=== PATIENT | male | born 1955 | race Native Hawaiian/Other Pacific Islander ===

== ENCOUNTER 2020-08-13 09:30 | Outpatient (CLI) | payer OTHER, MEDICARE | END 2020-08-13 21:49 | disposition home or self-care (01) | LOC: MRI 09:30 | PROVIDERS: ATTEND Internal Medicine | DX: M47.12 Other spondylosis with myelopathy, cervical region (principal) ==

== ENCOUNTER 2021-06-23 13:16 | Outpatient (CLI) | payer OTHER, MEDICARE ==
[2021-06-23 13:28] LABS: PLATELET COUNT 285 K/uL (142-355)
== END 2021-06-23 19:05 | disposition home or self-care (01) ==
LOC: LAB 13:16
PROVIDERS: ATTEND Internal Medicine
DX: R41.3 Other amnesia (principal); I10 Essential (primary) hypertension
CPT/HCPCS: 80053; 80061; 84439; 84443; 85027

== ENCOUNTER 2021-06-25 09:19 | Outpatient (CLI) | payer OTHER, MEDICARE | END 2021-06-25 18:52 | disposition home or self-care (01) | LOC: CT 09:19 | PROVIDERS: ATTEND Internal Medicine | DX: R41.3 Other amnesia (principal) ==

== ENCOUNTER 2022-03-10 09:14 | Outpatient (CLI) | payer OTHER, MEDICARE ==
[2022-03-10 09:44] LABS: PLATELET COUNT 296 K/uL (142-355)
[2022-03-10 10:38] LABS: POTASSIUM 3.8 mmol/L (3.6-5.2)
== END 2022-03-10 19:35 | disposition home or self-care (01) ==
LOC: LABW 09:14
PROVIDERS: ATTEND Internal Medicine
DX: R06.09 Other forms of dyspnea (principal); I10 Essential (primary) hypertension; D64.9 Anemia, unspecified
CPT/HCPCS: 36415; 80053; 80061; 81002; 82607; 82728; 82746; 83540; 83550; 83880; 84439; 84443; 85027; 85379

== ENCOUNTER 2022-03-31 15:52 | Outpatient (CLI) | payer OTHER, MEDICARE | END 2022-03-31 18:55 | disposition home or self-care (01) | LOC: RESP 15:52 | PROVIDERS: ATTEND Specialist | DX: I10 Essential (primary) hypertension (principal); R07.89 Other chest pain; R06.02 Shortness of breath; R42 Dizziness and giddiness ==

== ENCOUNTER 2022-04-06 09:49 | Outpatient (CLI) | payer OTHER, MEDICARE ==
[2022-04-06 15:47] LABS: PLATELET COUNT 308 K/uL (142-355)
[2022-04-06 15:53] LABS: POTASSIUM 3.6 mmol/L (3.6-5.2)
== END 2022-04-06 20:21 | disposition home or self-care (01) ==
LOC: LABW 09:49 → RESP 09:49 → LABW 20:21
PROVIDERS: ATTEND Specialist
DX: I10 Essential (primary) hypertension (principal); R07.89 Other chest pain; R06.02 Shortness of breath; R42 Dizziness and giddiness
CPT/HCPCS: 36415; 80048; 85027

== ENCOUNTER 2022-08-04 08:30 | Outpatient (CLI) | payer OTHER, MEDICARE | END 2022-08-04 18:58 | disposition home or self-care (01) | LOC: MRI 08:30 | PROVIDERS: ATTEND Nurse Practitioner Family | DX: M47.812 Spondylosis without myelopathy or radiculopathy, cervical region (principal) | CPT/HCPCS: 36415; 82565; 84520; A9576 ==

== ENCOUNTER 2022-10-01 09:14 | Outpatient (CLI) | payer OTHER, MEDICARE | END 2022-10-01 19:13 | disposition home or self-care (01) | LOC: RAD 09:14 | PROVIDERS: ATTEND Internal Medicine | DX: M51.16 Intervertebral disc disorders with radiculopathy, lumbar region (principal) ==